=== PATIENT | female | born 1995 | race Caucasian/White ===

== ENCOUNTER 2016-11-10 23:43 | Inpatient (IN) | payer OTHER ==
[~2016-11-10] VITALS: Ht 165.1 cm; Wt 83.6 kg
[~2016-11-10 23:43] MED LIST: FERR27TA PO; PREN1TAB49 PO
[2016-11-11] VITALS (7 sets, daily range): BP systolic 105–134; BP diastolic 55–80; PULSE 66–113; RESP 18–20; Ht 165.1 cm; Wt 83.6 kg
[2016-11-11] MEDS ORDERED: DEXTROSE 5%-LR 1,000 ML IV SCH (00:08)
[2016-11-11] MEDS ORDERED: CARBOPROST 250 MCG INJ IM PRN ×2 (00:30→06:00)
[2016-11-11] MEDS ORDERED: IBUPROFEN 600 MG TAB PO PRN (00:30)
[2016-11-11] MEDS ORDERED: LIDOCAINE 1% (MPF) 30 ML INJ INJ PRN (00:30)
[2016-11-11] MEDS ORDERED: OXYTOCIN 30 UNITS/LR 500 ML IV PRN ×2 (00:30→06:00)
[2016-11-11] MEDS ORDERED: OXYTOCIN 30 UNITS/LR 500 ML IV SCH ×3 (00:30)
[2016-11-11] MEDS ORDERED: LACTATED RINGER'S 1,000 ML IV PRN (00:30)
[2016-11-11] MEDS ORDERED: METHYLERGONOVINE 0.2 MG INJ IM PRN ×2 (00:30→06:00)
[2016-11-11] MEDS ORDERED: BUTORPHANOL 2 MG INJ IV PRN (00:30)
[2016-11-11] MEDS ORDERED: MISOPROSTOL 200 MCG TAB PR PRN ×2 (00:30→06:00)
[2016-11-11] MEDS: LACTATED RINGER'S 1,000 ML IV SCH ×2 (01:05→02:14)
[2016-11-11 01:20] LABS: BASOPHILS % 0.4 % (0.0-2.0); EOSINOPHILS % 0.3 % (0.0-7.0); HEMOGLOBIN 12.8 g/dl (12.0-16.0); LYMPHOCYTES # 1.3 10^3/ul (0.8-2.9); LYMPHOCYTES % 21.2 % (15.0-51.0); MEAN CORPUSCULAR HEMOGLOBIN 33.7 pg (29.0-33.0); MEAN CORPUSCULAR HGB CONC 35.7 g/dl (32.0-37.0); MEAN CORPUSCULAR VOLUME 94.3 fl (82.0-101.0); MEAN PLATELET VOLUME 9.8 fl (7.4-10.4); MONOCYTE # 0.9 10^3/ul (0.3-0.9); MONOCYTES % 14.4 % (0.0-11.0); NEUTROPHIL # 3.9 10^3/ul (1.6-7.5); NEUTROPHILS % 63.7 % (39.0-77.0); PLATELET COUNT 128 10^3/UL (140-440); RED BLOOD COUNT 3.81 10^6/ul (4.20-5.40); RED CELL DISTRIBUTION WIDTH 13.7 % (11.5-14.5); UNCORRECTED WBC 6.1 10^3/ul (4.8-10.8); WHITE BLOOD COUNT 6.1 10^3/ul (4.8-10.8)
[2016-11-11 01:23] LABS: CONDITION 1
[2016-11-11 01:29] LABS: INR 0.95; PROTIME 12.7 Sec (12.2-14.2)
[2016-11-11] MEDS ORDERED: FENTAnyl 2MCG/ML-ROPIV 0.2% 100 ML ONE (02:07)
--- NOTE | 2016-11-11 02:11 | RADRPT ---
PROCEDURE: ULTRASOUND OBSTETRICAL CLINICAL INDICATION: 21-year-old female with contractions for a position. TECHNIQUE: Multiple sonographic images of the pelvis were obtained. The images were reviewed on a PACS workstation. COMPARISON: No prior studies are available for comparison. FINDINGS: The cervix is not well visualized. There is a single viable intrauterine gestation. Cardiac activit y is present with 141 beats per minute. There is a vertex presentation. The placenta is anterior. Th ere is no evidence for an abruption or placenta previa. IMPRESSION: Single viable intrauterine gestation with vertex presentation. .Celestine Lucio MD, Date Time Electronically viewed and signed by .Celestine Lucio MD, on 11/11/2016 02:11 .Vlad
[2016-11-11] MEDS ORDERED: NALOXONE (0.4 MG/ML) INJ IV PRN (02:30)
[2016-11-11] MEDS ORDERED: KETOROLAC 30 MG INJ IV PRN (02:30)
[2016-11-11] MEDS ORDERED: FENTAnyl 2MCG/ML-ROPIV 0.2% 100 ML BAG EPI SCH (02:30)
[2016-11-11] MEDS ORDERED: DIPHENHYDRAMINE 50 MG INJ IV PRN (02:30)
[2016-11-11] MEDS ORDERED: HYDROmorphONE 1 MG/ML SYG IV PRN ×2 (02:30)
[2016-11-11] MEDS ORDERED: ONDANSETRON 4 MG INJ IV PRN (02:30)
[2016-11-11] MEDS ORDERED: morphine 2 MG INJ IV PRN ×2 (02:30)
--- NOTE | 2016-11-11 03:25 | TRIAGE ---
OB Triage Datetime Report Generated by CPN: 11/11/2016 03:24 Datetime: 11/11/2016 03:21 Pain Assessment Pain Scale: 0 Pain Presence: None/Denies Pain Type: N/A Pain Assessment Comments: patient denies pain at this time Datetime: 11/11/2016 03:18 Bedside Blood Glucose: 86 Datetime: 11/11/2016 03:04 Vaginal Exam Dilatation (cms): 7.0 Effacement (%): 90 Station: -1 Exam By: JF Vaginal Bleeding: None Cervix, Consistency: Soft Cervix, Position: Anterior Presentation 'A': Cephalic Datetime: 11/11/2016 02:21 Pain Assessment Pain Scale: 2 Pain Presence: Intermittent Pain Type: Cramping; Contraction Pain Location: Abdomen Pain Goal: 2 Pain Relief Measures: Epidural Given Pain Assessment Comments: Patient is comfortable and talking on cell phone Datetime: 11/11/2016 01:52 Vaginal Exam Dilatation (cms): 7.0 Effacement (%): 90 Station: -1 Exam By: JF Membrane Status: Ruptured Vaginal Bleeding: Normal Show Cervix, Consistency: Moderate Cervix, Position: Anterior Presentation 'A': Cephalic Datetime: 11/11/2016 01:46 Pain Assessment Pain Scale: 5 Pain Presence: Intermittent Pain Type: Cramping; Contraction Pain Location: Abdomen Pain Goal: 2 Pain Relief Measures: Comfort Measures Pain Assessment Comments: Patient is asking for epidural Datetime: 11/11/2016 01:31 Assessment Type: Admission Assessment Vaginal Bleeding: None Maternal Assessment Level of Consciousness: Fully Conscious DTR's/Clonus: DTRs 2+; No Clonus Headache: Denies Blurred Vision: No Respiratory Effort: Unlabored Nausea/Vomiting: Denies RUQ Epigastric Pain: Denies Lower Extremities Edema: None Degree: None Upper Extremities Edema: None Degree: None Facial Edema: None Fall Risk Assessment History of Falling: (0) No Secondary Diagnosis: (0) No Ambulatory Aid: (0) Bedrest/Nurse Assist IV Therapy: (20) Yes Gait: (0) Normal/Bedrest/Immobile Mental Status: (0) Oriented to Own Ability Fall Score: 20 Fall Risk Score Definition: No Risk: No action required Labor Evaluation Frequency: 2-5 Duration (sec)2399: 50-70 Quality: Mild Pattern: Normal: <= 5 Contractions in 10 Minutes Resting Tone [place]: Relaxed Heart Rate FHR Baseline Rate: 145 Variability: Moderate 6-25 bpm Accelerations: 10X10 Decelerations: None Category: Category I Pain Assessment Pain Scale: 6 Pain Presence: Intermittent Pain Type: Contraction Pain Location: Abdomen Pain Goal: 2 Membrane Status: Ruptured Membranes Ruptured Date/Time: 11/10/2016 22:40 Membranes Rupture Method: Spontaneous Amniotic Fluid Color: Clear Amniotic Fluid Odor: Normal Datetime: 11/11/2016 01:00 Stage of : OB Triage Labor Evaluation Frequency: 1.5-8 Monitor Mode: External Duration (sec)2399: 40-110 Quality: Mild Pattern: Normal: <= 5 Contractions in 10 Minutes Resting Tone [place]: Relaxed Heart Rate FHR Baseline Rate: 135 Monitor Mode: External US FHR Baseline Changes: No Baseline Change Variability: Moderate 6-25 bpm Accelerations: 15X15 Decelerations: Variable Category: Category II Datetime: 11/11/2016 00:00 Stage of : OB Triage Labor Evaluation Frequency: 2-5.5 Monitor Mode: External Duration (sec)2399: 60-100 Quality: Mild Pattern: Normal: <= 5 Contractions in 10 Minutes Resting Tone [place]: Relaxed Heart Rate FHR Baseline Rate: 135 Monitor Mode: External US Variability: Moderate 6-25 bpm Accelerations: 15X15 Decelerations: None Category: Category I Datetime: 11/10/2016 23:57 Time of Arrival: 11/11/2016 01:09 EGA: 38.4 Arrived By: Stretcher Arrived From: Other Unit in Hospital Membranes Ruptured Date/Time: 11/10/2016 22:40 Membranes Rupture Method: Spontaneous Amniotic Fluid Color: Clear Amniotic Fluid Amount: Small Amniotic Fluid Odor: None Datetime: 11/10/2016 23:54 Vaginal Exam Dilatation (cms): 5.0 Effacement (%): 80 Station: -3 Exam By: STEPHANIE Allen Vaginal Bleeding: None Cervix, Position: Posterior Datetime: 11/10/2016 23:52 Pool: Positive Datetime: 11/10/2016 23:51 Time of Arrival: 11/10/2016 23:35 Arrived By: Ambulatory Arrived From: Home Chief Complaint: SROM @2240 Movement: Present Contractions: Denies/Absent Rupture of Membranes: Ruptured Vaginal Bleeding: None Vaginal Discharge: Present Recent Sexual Intercouse: Yes Abdominal Trauma: Not Applicable Patient Complaints: None Time Provider Notified: 11/11/2016 00:17 Provider Notified: Initial Plan: EFM, NST, Nitrazine Datetime: 11/10/2016 23:49 Stage of : OB Triage Assessment Type: Triage Maternal Assessment Level of Consciousness: Fully Conscious DTR's/Clonus: DTRs 2+; No Clonus Headache: Denies Blurred Vision: No Respiratory Effort: Unlabored; Regular Rhythm; Equal Expansion Breath Sounds, Left: Clear and Equal Breath Sounds, Right: Clear and Equal Nausea/Vomiting: Denies RUQ Epigastric Pain: Denies Lower Extremities Edema: None Degree: None Upper Extremities Edema: None Degree: None Facial Edema: None Temperature Route: Oral Fall Risk Assessment History of Falling: (0) No Secondary Diagnosis: (0) No Ambulatory Aid: (0) Bedrest/Nurse Assist IV Therapy: (0) No Gait: (0) Normal/Bedrest/Immobile Mental Status: (0) Oriented to Own Ability Fall Score: 0 Fall Risk Score Definition: No Risk: No action required Pain Assessment Pain Scale: 0 Pain Presence: None/Denies Pain Type: N/A Datetime: 11/10/2016 23:48 Stage of : OB Triage Monitor Mode: External Contraction Comments: [place] applied Heart Rate FHR Baseline Rate: 140 Monitor Mode: External US Comments: EFM applied
--- NOTE | 2016-11-11 05:46 | LDN ---
Date/Time of Note Date/Time of Note DATE: 11/11/16 TIME: 05:43 Delivery Summary of a viable baby boy weighing 3370 grams or 7# 7 oz, 20" long, and with Apgars of 9/9. Assisted Vaginal Delivery: Vacuum Placenta Delivered: Spontaneously Meconium: none Perineum intact?: Yes Anesthesia type: Epidural Estimated blood loss: 300 Sponge & Needle done & correct: Yes All needle counts correct: Yes Any foreign bodies felt in the: No (vagina) Problems: Infant Delivery Information Sex Infant Sex: male Apgars 1 Minute: 9 5 Minute: 9 Suctioning Nose & mouth suctioned at rachel: No Delee suction performed: No Umbilical Cord Umbilical cord with: 3 Vessels Cord presentations: no nuchal cord Cord Blood was obtained: Yes Mother & Baby Disposition Disposition Mom & Baby to Maternity; Good: Yes Baby to NICU: No MARTHA MENDOZA MD Nov 11, 2016 05:46
--- NOTE | 2016-11-11 05:51 | HP ---
Date/Time of Note Date/Time of Note DATE: 11/11/16 TIME: 05:46 OB - History Hx of Present Free Text/Dictation 21 y.o. with an IUP at 38 weeks 4 days came in in active labor at 5 cm dilated. Last Menstrual Period: Nov 11, 2016 Estimated Due Date: Nov 21, 2016 : 2 Para: 1 Care: Good Care Ultrasounds: Normal mid trimester US Obstetrical Complications: None Medical Complications: None Past Family/Social History * Past Medical, Surgical, Family and Obstetric Histories reviewed from chart. Blood Type: A+ Rubella: immune RPR/VDRL: Negative GBS Status: Negative HBsAG: Negative OB Admission Exam Vital Signs Vital Signs Vital Signs Date Time Temp Pulse Resp B/P Pulse Ox O2 Delivery O2 Flow Rate FiO2 11/11/16 00:04 97.6 113 20 120/71 Room Air Physical Exam HEENT: WNL Heart: Rhythm Normal Lungs: Clear Abdomen: WNL Extremities: Normal Reflexes: Normal Cervical Dilatation: 5cm Effacement: Other (80%) Station: -2 Membranes: Intact Heart Rate: 140's Accelerations: Accelerations Present Decelerations: No Decelerations Varibility: Moderate Contractions on Admission: 6-10 Minutes Apart Last 72 hourBlood Glucose Bedside Glucose - 72 Hours Test 11/11/16 03:18 Bedside Glucose 86mg/dL (70-220) Last 72 hours Lab Results CBC & BMP 11/11/16 01:00 OB Assessment/Plan Reason for admission: active labor Plan: Expectant Management MARTHA MENDOZA MD Nov 11, 2016 05:51
[2016-11-11] MEDS ORDERED: LANOLIN 7 GM TUBE TOP PRN (06:00)
[2016-11-11] MEDS ORDERED: OXYCODONE/ASPIRIN (4.88/325) TAB PO PRN (06:00)
--- NOTE | 2016-11-11 07:03 | DELSUM ---
Delivery Summary A-C Datetime Report Generated by CPN: 11/11/2016 07:03 DELIVERY PERSONNEL Air Motor Repairer: Oliver, Crystal MATERNAL INFORMATION Delivery Anesthesia: Epidural Medications in Delivery: Epidural anesthesia Estimated Blood Loss (ml): 300 Placenta Cultured: No Maternal Complications: Other Other Maternal Complications: GDM - diet controlled LABOR SUMMARY EDC: 11/21/2016 00:00 No. Babies in Womb: 1 Attempted: No Labor Anesthesia: Epidural LABOR INFORMATION Reason for Induction: Not Applicable Onset of Labor: 11/10/2016 22:40 Complete Dilatation: 11/11/2016 05:08 Oxytocin: N/A Group B Beta Strep: Negative Antibiotics # of Doses: 0 Steroids Given: Partial Course Reason Steroids Not Administered: Indication Other Reason Not Administered: Term MEMBRANES Membranes Rupture Method: Spontaneous Membranes Rupture Method: Spontaneous Rupture of Membranes: 11/10/2016 22:40 Rupture of Membranes: 11/10/2016 22:40 Length of Rupture (hr): 6.70 Length of Rupture (hr): 6.70 Amniotic Fluid Color: Clear Amniotic Fluid Color: Clear Amniotic Fluid Amount: Small Amniotic Fluid Odor: Normal Amniotic Fluid Odor: None STAGES OF LABOR Stage 1 hr: 6 Stage 1 min: 28 Stage 2 hr: 0 Stage 2 min: 14 Stage 3 hr: 0 Stage 3 min: 5 Total Time in Labor hr: 6 Total Time in Labor min: 47 VAGINAL DELIVERY Episiotomy: None Laceration Extension: N/A Laceration Type: None Initial Vag Sponge Count: 20 Final Vag Sponge Count: 20 Initial Vag Sharps Count: 0 Final Vag Sharps Count: 0 Sponge Count Correct: Yes Sharps Count Correct: Yes BABY A INFORMATION Infant Delivery Date/Time: 11/11/2016 05:22 Method of Delivery: Vaginal Born in Route : No : N/A Forceps: N/A Vacuum Extraction: N/A Shoulder Dystocia : No SHOULDER DYSTOCIA BABY A Delivery Date/Time: 11/11/2016 05:22 PRESENTATION/POSITION BABY A Presentation: Cephalic Presentation: Cephalic Cephalic Presentation: Vertex Breech Presentation: N/A PLACENTA INFORMATION BABY A Placenta Delivery Time : 11/11/2016 05:27 Placenta Method of Delivery: Spontaneous Placenta Status: Delivered SCORES BABY A Heart Rate 1 min: >100 bpm Resp Effort 1 min: [place] Reflex Irritability 1 min: Cough/Sneeze/Pulls Away Muscle Tone 1 min: Active Motion Color 1 min: Body [place], Extremit Blue Resuscitation Effort 1 min: Tactile Stimulation SCORE 1 MIN: 9 Heart Rate 5 min: >100 bpm Resp Effort 5 min: [place] Reflex Irritability 5 min: Cough/Sneeze/Pulls Away Muscle Tone 5 min: Active Motion Color 5 min: Body [place], Extremit Blue Resuscitation Effort 5 min: Tactile Stimulation SCORE 5 MIN: 9 INFORMATION BABY A Gestational Age at Delivery: 38.4 Gestational Status: Early Term- 37- 38.6 Weeks Outcome : Liveborn Condition : Stable Infant Sex: Male IDENTIFICATION/MEDS BABY A ID Band Number: [id number] ID Band Location: Right Leg; Left Arm Sensor Applied: Yes Sensor Number: [id number] Sensor Location : Cord Clamp Vitamin K Given : Not Given Erythromycin Given: Not Given WEIGHT/LENGTH BABY A Birthweight (gm): 3370 Infant Weight (lb): 7 Infant Weight (oz): 7 Length (in): 20.00 Length (cm): 50.80 CORD INFORMATION BABY A No. Cord Vessels: 3 Nuchal Cord : N/A Cord Blood Taken: Yes Suction: Nose; Pharynx ASSESSMENT BABY A Infant Complications: None Physical Findings at Delivery: Within Normal Limits Infant Respirations: Appears Normal Manufacturing Process Engineer/ALS Called : No Infant Care By: Jennie Garza RN Transferred To: Remains with Mother
[2016-11-11] MEDS: IBUPROFEN 600 MG TAB PO SCH ×4 (08:00→23:34)
[2016-11-11] MEDS: LACTATED RINGER'S 1,000 ML IV* SCH ×2 (09:50→14:03)
[2016-11-11] MEDS: OXYTOCIN 30 UNITS/LR 500 ML IV SCH ×2 (09:50→16:00)
[2016-11-12 04:09] VITALS: BP 103/68; PULSE 64; RESP 18
[2016-11-12] MEDS: IBUPROFEN 600 MG TAB PO SCH ×3 (06:03→18:12)
[2016-11-12 07:52] LABS: BASOPHILS % 0.2 % (0.0-2.0); EOSINOPHILS % 0.7 % (0.0-7.0); HEMATOCRIT 33.7 % (37.0-47.0); LYMPHOCYTES # 1.5 10^3/ul (0.8-2.9); LYMPHOCYTES % 19.2 % (15.0-51.0); MEAN CORPUSCULAR HGB CONC 35.6 g/dl (32.0-37.0); MEAN CORPUSCULAR VOLUME 95.5 fl (82.0-101.0); MONOCYTE # 0.8 10^3/ul (0.3-0.9); MONOCYTES % 10.7 % (0.0-11.0); NEUTROPHIL # 5.2 10^3/ul (1.6-7.5); NEUTROPHILS % 69.2 % (39.0-77.0); PLATELET COUNT 119 10^3/UL (140-440); RED BLOOD COUNT 3.53 10^6/ul (4.20-5.40); RED CELL DISTRIBUTION WIDTH 13.3 % (11.5-14.5); UNCORRECTED WBC 7.6 10^3/ul (4.8-10.8); WHITE BLOOD COUNT 7.6 10^3/ul (4.8-10.8)
[2016-11-12 08:00] VITALS: BP 111/68; PULSE 64; RESP 16
[2016-11-12 08:01] LABS: CONDITION 1
--- NOTE | 2016-11-12 10:07 | PN ---
Date/Time of Note Date/Time of Note DATE: 11/12/16 TIME: 10:05 OB Subjective Subjective Subjective day 1 Afebrile vital sign stable abdomen soft uterus firm lochia normal extremity normal Laboratory Tests Test 11/12/16 06:16 Basophils # 0.010^3/ul Basophils % 0.2% Eosinophils # 0.010^3/ul Eosinophils % 0.7% Hematocrit 33.7% Hemoglobin 12.0g/dl Lymphocytes # 1.510^3/ul Lymphocytes % 19.2% Mean Corpuscular Hemoglobin 34.0pg Mean Corpuscular Hemoglobin Concent 35.6g/dl Mean Corpuscular Volume 95.5fl Mean Platelet Volume 10.0fl Monocytes # 0.810^3/ul Monocytes % 10.7% Neutrophils # 5.210^3/ul Neutrophils % 69.2% Nucleated Red Blood Cells # 0.010^3/ul Nucleated Red Blood Cells % 0.0/100WBC Platelet Count 17461^3/UL Red Blood Count 3.5310^6/ul Red Cell Distribution Width 13.3% White Blood Count 7.610^3/ul Current Medications Medications (Trade) Dose Ordered Sig/Melly Route PRN Reason Start Time Stop Time Status Last Admin Dose Admin Lactated Ringer's 1,000 ml @ 125 mls/hr Q8H IV 11/11/16 00:08 11/11/16 05:43 DC 11/11/16 02:14 Dextrose/Lactated Ringer's 1,000 ml @ 125 mls/hr Q8H IV 11/11/16 00:08 11/11/16 05:43 DC Oxytocin/Lactated Ringer's 500 ml @ 0 mls/hr TITRATE IV 11/11/16 00:30 11/11/16 05:43 DC Butorphanol Tartrate (Stadol) 2 mg Q2H PRN IV PAIN 11/11/16 00:30 11/11/16 05:43 DC Lidocaine 30 ml 30 ml ONCE PRN INJ EPISIOTOMY/TEARING 11/11/16 00:30 11/11/16 05:43 DC Oxytocin/Lactated Ringer's 500 ml @ 125 mls/hr ONCE -MAY REPEAT X1 IV 11/11/16 00:30 11/11/16 05:43 DC Oxytocin/Lactated Ringer's 500 ml @ 125 mls/hr ONCE IV 11/11/16 00:30 11/11/16 05:43 DC Ibuprofen 600 mg 600 mg ONCE PRN PO Mild Pain (Pain Score 1-3) 11/11/16 00:30 11/11/16 05:44 DC Lactated Ringer's 1,000 ml @ 2,000 mls/hr Q30M PRN IV PRE-EPIDURAL BOLUS 11/11/16 00:30 11/11/16 05:44 DC 11/11/16 02:14 Oxytocin/Lactated Ringer's 500 ml @ 0 mls/hr ONCE PRN IV For Hemorrhage Management 11/11/16 00:30 11/11/16 05:44 DC Methylergonovine Maleate (Methergine) 0.2 mg ONCE PRN IM VAGINAL BLEEDING 11/11/16 00:30 11/11/16 05:43 DC Carboprost Tromethamine (Hemabate) 250 mcg ONCE PRN IM VAGINAL BLEEDING 11/11/16 00:30 11/11/16 05:44 DC Misoprostol 1000 mcg 1,000 mcg ONCE PRN ID VAGINAL BLEEDING 11/11/16 00:30 11/11/16 05:44 DC Fentanyl/ Ropivacaine 100 ml @ ud STK-MED ONCE .ROUTE 11/11/16 02:07 11/11/16 02:08 DC Naloxone HCl (Narcan) 0.1 mg Q2M PRN IV FOR RESP RATE 8 OR LESS 11/11/16 02:30 11/11/16 05:43 DC Ketorolac Tromethamine (Toradol) 30 mg Q6H PRN IV PAIN 11/11/16 02:30 11/11/16 05:43 DC Morphine Sulfate (morphine) 2 mg Q3H PRN IV PAIN LEVEL 1-5 11/11/16 02:30 11/11/16 05:43 DC Morphine Sulfate (morphine) 4 mg Q3H PRN IV PAIN LEVEL 6-10 11/11/16 02:30 11/11/16 05:43 DC Hydromorphone HCl (Dilaudid) 0.2 mg Q3H PRN IV PAIN LEVEL 1-5 11/11/16 02:30 11/11/16 05:43 DC Hydromorphone HCl (Dilaudid) 0.4 mg Q3H PRN IV PAIN LEVEL 6-10 11/11/16 02:30 11/11/16 05:43 DC Diphenhydramine HCl (Benadryl) 25 mg Q6H PRN IV ITCHING 11/11/16 02:30 11/11/16 05:43 DC Ondansetron HCl (Zofran Inj) 4 mg Q6H PRN IV NAUSEA AND/OR VOMITING 11/11/16 02:30 11/11/16 05:43 DC Fentanyl/ Ropivacaine 100 ml 100 ml EPIDURAL INFUSION EPI 11/11/16 02:30 11/11/16 05:43 DC Lactated Ringer's (Lr) 1,000 ml @ 125 mls/hr Q8H IV* 11/11/16 05:40 11/11/16 18:13 DC 11/11/16 14:03 Ibuprofen (Motrin) 600 mg Q6 PO 11/11/16 06:00 11/12/16 06:03 Oxycodone/Aspirin (Percodan) 1 tab Q3H PRN PO PAIN LEVEL 1-5 11/11/16 06:00 Lanolin (Irt-C-Wnfswz) 1 applic BEDSIDE MEDICATION PRN TOP BEDSIDE FOR FAHAD TO NIPPLES 11/11/16 06:00 11/11/16 20:04 Diphtheria/ Tetanus/Acell Pertussis 0.5 ml 0.5 ml ONCE ONCE IM* 11/13/16 09:00 11/13/16 09:01 Oxytocin/Lactated Ringer's 500 ml @ 0 mls/hr ONCE PRN IV For Hemorrhage Management 11/11/16 06:00 Methylergonovine Maleate (Methergine) 0.2 mg ONCE PRN IM VAGINAL BLEEDING 11/11/16 06:00 Carboprost Tromethamine (Hemabate) 250 mcg ONCE PRN IM VAGINAL BLEEDING 11/11/16 06:00 Misoprostol 1000 mcg 1,000 mcg ONCE PRN ID VAGINAL BLEEDING 11/11/16 06:00 Oxytocin/Lactated Ringer's 500 ml @ 125 mls/hr Q4H IV 11/11/16 06:00 11/11/16 18:13 DC 11/11/16 09:50 CINDI GARCIA MD Nov 12, 2016 10:06
[2016-11-12 16:00] VITALS: BP 121/69; PULSE 77; RESP 19
[2016-11-12 19:50] VITALS: BP 116/66; PULSE 70; RESP 18
[2016-11-13] MEDS: IBUPROFEN 600 MG TAB PO SCH ×3 (00:19→12:16)
[2016-11-13 03:55] VITALS: BP 108/63; PULSE 69; RESP 18
[2016-11-13 07:45] VITALS: BP 108/61; PULSE 60; RESP 18
[2016-11-13] MEDS ORDERED: DIPHTH/TET/ACEL PERTUSS (ADULT) 0.5 ML VIAL IM* ONE (09:00)
--- NOTE | 2016-11-13 10:05 | PD.PPDC ---
[employer]AN[employer] CHIEF Discharge Instruction Condition Patient Condition: Good Diet Diet: Resume Regular Diet Activity/Restrictions Restrictions: No Exercising No Lifting No Driving No Sexual Activity Nothing in the Vagina No [place] No Tampons, douche Follow-up Follow-up with Physician: 2, Week/Weeks Return to clinic for COMSEC MANAGER Instructions: Fever greater than 101 Worsening abdominal pain Excessive Vaginal Bleeding More than 2 pads per hour Unable to tolerate diet CINDI GARCIA MD Nov 13, 2016 10:05
--- NOTE | 2016-11-13 10:07 | DS ---
Date/Time of Note Date/Time of Note DATE: 11/13/16 TIME: 10:06 Obstetrical Discharge Record Final Diagnosis Final Diagnosis: Term delivered Vaginal Delivery Obstetrical Delivery: Spontaneous Condition on Discharge Physical Assessment Last Vitals: Post normal delivery day 2 Afebrile abdomen soft uterus firm lochia normal extremity normal patient discharged home with a follow-up instruction to be seen at the clinic in 2 weeks. Voiding: Yes Bowel Movement: Yes Breast: Soft, non-tender, Filling Fundus: Firm Calf Tenderness: No Patient Condition: Good CINDI GARCIA MD Nov 13, 2016 10:07
== END 2016-11-13 12:55 | disposition home or self-care (01) | DRG 775 ==
LOC: OBT 23:43 → L-D 23:44 → OBT 11-11 00:04 → L-D 11-11 00:05 → PP1 11-11 08:10
PROVIDERS: ADMIT Obstetrics & Gynecology; ATTEND Obstetrics & Gynecology
PROC: 10E0XZZ Delivery of Products of Conception, External Approach (ICD-10-PCS; principal; 2016-11-11)
DX: O80 Encounter for full-term uncomplicated delivery (principal); Z37.0 Single live birth; Z3A.38 38 weeks gestation of pregnancy
CPT/HCPCS: 36415; 62319; 76815; 82947; 82962; 85025; 85610; 85730; 86592; 86900; 86901; 87340; 90715; G0463; J2590; J3010; J7120; J7121

== ENCOUNTER 2018-04-22 13:17 | Outpatient (CLI) | END 2018-04-22 15:00 | disposition home or self-care (01) ==

== ENCOUNTER 2018-04-26 10:00 | Inpatient (IN) | END 2018-04-28 12:35 | disposition home or self-care (01) | DRG 775 ==